=== PATIENT | female | born 1990 | race Caucasian/White ===

== ENCOUNTER 2023-11-10 08:37 | Emergency (ER) | payer MEDICAID ==
[~2023-11-10] VITALS: Ht 157.5 cm; Wt 72.7 kg
[2023-11-10 08:43] VITALS: BP 136/104; PULSE 97; TEMP 97.8; O2SAT 96
[2023-11-10 09:10] LABS: CLARITY,URINE CLOUDY (Clear); COLOR,URINE ORANGE (Yellow)
[2023-11-10 09:16] LABS: UA COLLECTION TYPE CLN CATCH MIDSTREAM
[2023-11-10 09:19] LABS: SQUAMOUS EPITHELIAL CELL,UR MANY /LPF (FEW)
[2023-11-10 09:21] LABS: BACTERIA,URINE 2+ /HPF (Neg); WBC,URINE TNTC /HPF (0-4)
[2023-11-10 09:23] LABS: WBC CLUMPS,URINE FEW /HPF (NEGATIVE)
[2023-11-10 09:24] LABS: RBC,URINE 0-2 /HPF (0-2)
[2023-11-10] MEDS: ondansetron/PF 4mg/2ml inj IV ONE (09:29)
[2023-11-10] MEDS: morphine 4 MG/ML inj SYRINge IV PRN (09:29)
[2023-11-10] MEDS: normal saline 1000ML IV soln IVB ONE (09:29)
[2023-11-10 09:49] LABS: BASOPHILS % (AUTO) 0.5 % (0-1); EOSINOPHILS # (AUTO) 0.2 X10'3 (0-0.9); EOSINOPHILS % (AUTO) 1.5 % (0-6); HEMATOCRIT 44.6 % (35.0-45.0); HEMOGLOBIN 14.9 g/dl (12.0-16.0); LYMPHOCYTES # (AUTO) 2.1 X10'3 (1.1-4.8); LYMPHOCYTES % (AUTO) 21.2 % (21-51); MEAN CORPUSCULAR HEMOGLOBIN 30.1 PG (27.0-31.0); MEAN CORPUSCULAR HGB CONC 33.4 g/dL (33.0-36.5); MEAN CORPUSCULAR VOLUME 90.1 FL (78-98); MONOCYTES # (AUTO) 0.9 X10'3 (0-0.9); MONOCYTES % (AUTO) 9.3 % (2-12); NEUTROPHILS # (AUTO) 6.8 X10'3 (1.8-7.7); NEUTROPHILS % (AUTO) 67.5 % (42-75); PLATELET COUNT 293 X10'3 (140-440); RED BLOOD COUNT 4.95 X10'6 (4.20-5.60); RED CELL DISTRIBUTION WIDTH 13.6 % (11.5-14.5)
[2023-11-10 09:50] LABS: ALBUMIN 4.1 G/DL (3.4-5.0); ANION GAP 12 (8-16); BLOOD UREA NITROGEN 5 MG/DL (7-18); BUN/CREATININE RATIO 6.5 (10.0-20.0); CALCIUM 8.7 MG/DL (8.5-10.1); CHLORIDE 105 MMOL/L (99-107); CREATININE 0.77 MG/DL (0.40-0.90); GLUCOSE 119 MG/DL (70-104); SODIUM 142 MMOL/L (135-145); TOTAL CARBON DIOXIDE 24.6 MMOL/L (24-32); eCRCL 81 ML/MIN; eGFR 85 ML/MIN
[2023-11-10 10:19] LABS: URINE HCG NEGATIVE (NEG)
[2023-11-10] MEDS: ketorolac trometh. 30mg/ml inj. IV ONE (11:29)
[2023-11-10] MEDS: CefTRIAXone 2gm/D5W 50ml BAG 50 ML IV ONE (11:30)
[2023-11-10 11:39] VITALS: RESP 18
[2023-11-10] MEDS ORDERED: CEFU250T95 PO (11:48)
== END 2023-11-10 11:56 | disposition home or self-care (01) ==
LOC: ER 08:38
DX: N39.0 Urinary tract infection, site not specified (principal); M54.9 Dorsalgia, unspecified; R10.9 Unspecified abdominal pain; Z79.899 Other long term (current) drug therapy
CPT/HCPCS: 36415; 74176; 76856; 80048; 81001; 81025; 85025; 93976; 96361; 96365; 96375; 99285; J0696; J1885; J2270; J2405; J7030